=== PATIENT | male | born 1980 | race African-American/Black ===

== ENCOUNTER 2016-10-02 19:40 | Emergency (ER) | payer OTHER ==
[~2016-10-02] VITALS: Ht 180.3 cm; Wt 74.8 kg
[2016-10-02] MEDS ORDERED: AUGMENTIN 875-875 MG PO (21:12)
== END 2016-10-02 21:20 | disposition home or self-care (01) ==
LOC: ED 19:40 → EDBD 19:42 → ED 19:42
DX: H65.112 Acute and subacute allergic otitis media (mucoid) (sanguinous) (serous), left ear (principal); J02.9 Acute pharyngitis, unspecified; R51 Headache; F17.200 Nicotine dependence, unspecified, uncomplicated

== ENCOUNTER 2016-11-13 15:06 | Emergency (ER) | payer OTHER ==
[~2016-11-13] VITALS: Wt 73.9 kg
[~2016-11-13 15:06] MED LIST: AUGMENTIN 875-875 MG PO
[2016-11-13] MEDS ORDERED: PROAIR HFA8.5 GM INH (16:04)
[2016-11-13] MEDS ORDERED: MEDROL DOSEPAK4 MG PO (16:04)
[2016-11-13] MEDS ORDERED: BROMFED DM COU118 M2 PO (16:04)
== END 2016-11-13 20:35 | disposition home or self-care (01) ==
LOC: ED 15:06
DX: J40 Bronchitis, not specified as acute or chronic (principal); F17.200 Nicotine dependence, unspecified, uncomplicated

== ENCOUNTER → 2016-12-14 | Outpatient (CLI) | payer OTHER ==
[~2016-12-14] MED LIST changes: +BROMFED DM COU118 M2 PO; +MEDROL DOSEPAK4 MG PO; +PROAIR HFA8.5 GM INH
[2016-12-14 15:17] LABS: HEMATOCRIT 46.5 % (42.0-52.0); MEAN CELL VOLUME 84.1 fl (80.0-94.0); MEAN CORPUSCULAR HGB 28.9 pg (27.0-31.0); MEAN CORPUSCULAR HGB CONC 34.4 g/dl (33.0-37.0); MEAN PLATELET VOLUME 10.3 fl (9.6-12.3); RED BLOOD COUNT 5.53 10*6/uL (4.50-5.90); RED CELL DISTRI WIDTH 12.9 % (0-14.5); WHITE BLOOD COUNT 6.2 10*3/uL (4.8-10.8)
[2016-12-14 15:34] LABS: ALBUMIN 3.8 gm/dl (3.1-4.5); ALKALINE PHOSPHATASE 94 U/L (45-117); BUN 13 mg/dl (7-24); CHLORIDE 106 mmol/L (98-107); CHOLESTEROL 148 mg/dL (<200); CREATININE 1.12 mg/dL (0.70-1.30); HDL CHOLESTEROL 35 mg/dl (40-60); LDL CHOLESTEROL 60 mg/dL (9-159); POTASSIUM 3.7 mmol/L (3.5-5.1); SGOT/AST 17 IU/L (3-35); SGPT/ALT 22 U/L (12-78); SODIUM 141 mmol/L (136-145); TRIGLYCERIDES 265 mg/dl (<150); VLDL CHOLESTEROL 53 mg/dL (6-40)
[2016-12-15 07:06] LABS: HEPATITIS B SURFACE AG Negative (Negative); HEPATITIS C VIRUS ANTIBODY <0.1 s/co (0.0-0.9)
[2016-12-15 09:06] LABS: HIV 1+2 AB + HIV1 P24 AG Non Reactive (Non Reactive)
== END | disposition home or self-care (01) ==
LOC: LAB 14:46
PROVIDERS: Family Medicine
DX: E78.00 Pure hypercholesterolemia, unspecified (principal); E55.9 Vitamin D deficiency, unspecified; R05 Cough; R06.02 Shortness of breath; Z20.6 Contact with and (suspected) exposure to human immunodeficiency virus [HIV]

== ENCOUNTER → 2017-03-15 | Outpatient (CLI) | payer OTHER ==
[2017-03-15 14:35] LABS: BASO % 0.3 % (0.0-1.0); EOS # 0.3 10*3/uL (0.0-0.4); EOS % 5.5 % (1.0-4.0); HEMATOCRIT 45.5 % (42.0-52.0); HEMOGLOBIN 16.1 g/dl (14.0-18.0); LYMPH % 49.9 % (27.0-41.0); MEAN CELL VOLUME 84.4 fl (80.0-94.0); MEAN CORPUSCULAR HGB 29.9 pg (27.0-31.0); MEAN CORPUSCULAR HGB CONC 35.4 g/dl (33.0-37.0); MEAN PLATELET VOLUME 11.1 fl (9.6-12.3); MONO # 0.6 10*3/uL (0.1-1.0); MONO % 9.6 % (3.0-9.0); NEUT # 2.1 10*3/uL (2.3-7.9); NEUT % 34.5 % (47.0-73.0); PLATELET COUNT AUTOMATED 192 10*3/uL (130-400); RED BLOOD COUNT 5.39 10*6/uL (4.50-5.90); RED CELL DISTRI WIDTH 12.4 % (0-14.5)
[2017-03-16 07:06] LABS: HEPATITIS B SURFACE AG Negative (Negative); HEPATITIS C VIRUS ANTIBODY <0.1 s/co (0.0-0.9)
[2017-03-16 08:11] LABS: HIV 1+2 AB + HIV1 P24 AG Non Reactive (Non Reactive)
== END | disposition home or self-care (01) ==
LOC: LAB 13:59
PROVIDERS: Family Medicine
DX: E74.9 Disorder of carbohydrate metabolism, unspecified (principal); Z20.6 Contact with and (suspected) exposure to human immunodeficiency virus [HIV]; E78.00 Pure hypercholesterolemia, unspecified; E55.9 Vitamin D deficiency, unspecified

== ENCOUNTER → 2017-06-02 | Outpatient (CLI) | payer OTHER ==
[2017-06-03 06:14] LABS: HIV 1+2 AB + HIV1 P24 AG Non Reactive (Non Reactive)
[2017-06-03 08:14] LABS: HEPATITIS B SURFACE AG Negative (Negative); HEPATITIS C VIRUS ANTIBODY <0.1 s/co (0.0-0.9)
== END | disposition home or self-care (01) ==
LOC: LAB 14:33
PROVIDERS: Family Medicine
DX: Z11.4 Encounter for screening for human immunodeficiency virus [HIV] (principal); R05 Cough; R09.89 Other specified symptoms and signs involving the circulatory and respiratory systems; F17.200 Nicotine dependence, unspecified, uncomplicated

== ENCOUNTER → 2017-06-03 | Outpatient (CLI) | payer OTHER | END | disposition home or self-care (01) | LOC: RAD 16:15 | DX: S99.922A Unspecified injury of left foot, initial encounter (principal); X58.XXXA Exposure to other specified factors, initial encounter; Y93.89 Activity, other specified; Y92.89 Other specified places as the place of occurrence of the external cause; Y99.8 Other external cause status ==

== ENCOUNTER 2017-09-26 20:32 | Emergency (ER) | payer OTHER ==
[~2017-09-26] VITALS: Ht 180.3 cm; Wt 72.6 kg
--- NOTE | ~2017-09-26 | EKG ---
[place], [place] ELECTROCARDIOGRAM REPORT NAME: SERGIO MAX UNIT #: [id number] ROOM: DOCTOR: EPIPHANY DRAFT REPORT BIRTHDATE: [birth year] [facility] Test Date: 2017-09-26 Test Time: 20:45:38 Pat Name: SERGIO MAX Department: ER Room: 9 Gender: M Emergency Room Physician Assistant: EKG.MI : 1980 Requested By: OSWALDO VASQUES Order Number: [id number] Reading MD: Luis Angel Peña MD Measurements Intervals [place] Rate: 58 P: 81 IA: 137 QRS: 73 QRSD: 101 T: 64 QT: 372 QTc: 366 Interpretive Statements Sinus rhythm ST elev, probable normal early repol pattern Electronically Signed On 09-27-2017 10:26:15 PDT by Luis Angel Peña MD CM:EKGRPT:ELECTROCARDIOGRAM REPORT [id number] OSWALDO VASQUES MD EPIPHANY DRAFT REPORT OSWALDO VASQUES MD
[2017-09-26] MEDS ORDERED: IBU800 M2 PO (20:41)
[2017-09-26] MEDS ORDERED: PREDNISONE10 MG PO (21:47)
[2017-09-26] MEDS ORDERED: KETOROLAC10 MG PO (21:47)
[2017-09-26] MEDS ORDERED: Orphenadrine C100 MG PO (21:47)
== END 2017-09-26 21:54 | disposition home or self-care (01) ==
LOC: ED 20:32
DX: M54.12 Radiculopathy, cervical region (principal); Z98.890 Other specified postprocedural states

== ENCOUNTER 2017-12-31 14:58 | Emergency (ER) | payer OTHER ==
[~2017-12-31] VITALS: Ht 180.3 cm; Wt 72.6 kg
[~2017-12-31 14:58] MED LIST changes: +IBU800 M2 PO; +KETOROLAC10 MG PO; +Orphenadrine C100 MG PO; +PREDNISONE10 MG PO
[2017-12-31] MEDS ORDERED: CLARITIN10 MG PO (15:34)
[2017-12-31] MEDS ORDERED: PREDNISONE10 MG PO (15:34)
[2017-12-31] MEDS ORDERED: FLONASE ALLERG9.9 ML NAS (15:34)
== END 2017-12-31 16:16 | disposition home or self-care (01) ==
LOC: ED 14:58
DX: J20.9 Acute bronchitis, unspecified (principal); F17.200 Nicotine dependence, unspecified, uncomplicated

== ENCOUNTER 2018-04-23 19:41 | Emergency (ER) | payer OTHER ==
[~2018-04-23] VITALS: Ht 180.3 cm; Wt 73.5 kg
[~2018-04-23 19:41] MED LIST changes: +CLARITIN10 MG PO; +FLONASE ALLERG9.9 ML NAS
[2018-04-23] MEDS ORDERED: AMOXICILLIN500 M3 PO (19:49)
[2018-04-23] MEDS ORDERED: PROAIR HFA8.5 GM INH (20:27)
[2018-04-23] MEDS ORDERED: PREDNISONE20 M1 PO (20:27)
== END 2018-04-23 20:37 | disposition home or self-care (01) ==
LOC: ED 19:41
DX: J02.9 Acute pharyngitis, unspecified (principal); R05 Cough; R09.81 Nasal congestion; Z87.891 Personal history of nicotine dependence

== ENCOUNTER → 2019-02-08 | Outpatient (CLI) | payer OTHER ==
[~2019-02-08] MED LIST changes: +AMOXICILLIN500 M3 PO; +PREDNISONE20 M1 PO
== END | disposition home or self-care (01) ==
LOC: US 07:30
DX: R10.11 Right upper quadrant pain (principal)

== ENCOUNTER → 2019-11-28 | Outpatient (CLI) | payer OTHER | END | disposition home or self-care (01) | LOC: COVID19 08:04 | PROVIDERS: ATTEND Family Medicine | DX: Z20.828 Contact with and (suspected) exposure to other viral communicable diseases (principal) ==

== ENCOUNTER 2021-01-27 05:57 | Emergency (ER) | payer OTHER ==
[~2021-01-27] VITALS: Ht 180.3 cm; Wt 70.3 kg
[2021-01-27 06:50] LABS: HEMATOCRIT 46.3 % (42.0-52.0); MEAN CORPUSCULAR HGB CONC 34.1 g/dl (33.0-37.0); MEAN PLATELET VOLUME 10.5 fl (9.6-12.3); PLATELET COUNT AUTOMATED 210 10*3/uL (130-400); RED BLOOD COUNT 5.45 10*6/uL (4.50-5.90); RED CELL DISTRI WIDTH 12.5 % (0-14.5); WHITE BLOOD COUNT 3.1 10*3/uL (4.8-10.8)
[2021-01-27 07:17] LABS: ALBUMIN 3.9 gm/dl (3.1-4.5); ALKALINE PHOSPHATASE 72 U/L (45-117); ATYPICAL LYMPHS 5 % (0-0); BASOPHILS 1 % (0-1); BUN 16 mg/dl (7-24); CHLORIDE 109 mmol/L (98-107); CREATININE 1.02 mg/dL (0.70-1.30); POTASSIUM 4.5 mmol/L (3.5-5.1); SGOT/AST 47 IU/L (3-35); SGPT/ALT 84 U/L (12-78); SODIUM 140 mmol/L (136-145); TOTAL CELLS COUNTED 100 #CELLS; TOTAL PROTEIN 7.8 gm/dL (6.4-8.2)
[2021-01-27 07:18] LABS: PLATELET SUFFICIENCY NORMAL (NORMAL)
[2021-01-27] MEDS ORDERED: CITROMA296 ML PO (08:50)
[2021-01-27] MEDS ORDERED: DULCOLAX STOOL100 MG PO (08:50)
[2021-01-27 09:08] LABS: BILIRUBIN Negative (Negative); BLOOD Negative (Negative); CLARITY Clear (Clear); COLOR Yellow (Yellow); GLUCOSE Negative (Negative); KETONE Trace (Negative); LEUKO ESTERASE Negative (Negative); NITRITE Negative (Negative); SPECIFIC GRAVITY >= 1.030 (1.001-1.030)
[2021-01-27 09:22] LABS: BACTERIA 1+; MUCOUS 2+
== END 2021-01-27 09:00 | disposition home or self-care (01) ==
LOC: ED 05:57
PROVIDERS: Emergency Medicine
DX: K59.00 Constipation, unspecified (principal)

== ENCOUNTER 2021-05-16 20:34 | Emergency (ER) | payer OTHER ==
[~2021-05-16] VITALS: Ht 180.3 cm; Wt 70.3 kg
[~2021-05-16 20:34] MED LIST changes: +CITROMA296 ML PO; +DULCOLAX STOOL100 MG PO
[2021-05-16] MEDS ORDERED: ZOFRAN4 MG PO (21:34)
== END 2021-05-16 23:21 | disposition home or self-care (01) ==
LOC: ED 20:34
DX: R11.2 Nausea with vomiting, unspecified (principal)